=== PATIENT | female | born 1960 | race Two or more races ===

== ENCOUNTER → 2017-06-04 | Outpatient (CLI) | payer MEDICAID ==
[~2017-06-04] MED LIST: ALBU2TAB4 IN; ALBUAER3 IN; BUDE0.253 NEB; CETI5TAB20 PO; DICL1GEL26 TOP; DICL50TA2 PO; ESCI20TA PO; FERR325T PO; FLUT0.0535 NAS; FURO40TA4 PO; GABA-497 PO; GLIP-115 PO; HYDR-4663 PO; IPRAAER6 IN; LEVO125T6 PO; LOSA50TA6 PO; MONT10TA34 PO; PANT1INJ3 PO; POTA10TA34 PO; ROSU10TA16 PO; TOPI100T68 PO
== END | disposition home or self-care (01) ==
LOC: Rad HDHVI 11:57
PROVIDERS: ATTEND Internal Medicine Cardiovascular Disease
DX: I25.10 Atherosclerotic heart disease of native coronary artery without angina pectoris (principal)
CPT/HCPCS: 93880

== ENCOUNTER → 2017-06-20 | Outpatient (CLI) | payer MEDICAID ==
[2017-06-20 11:00] VITALS: BP 150/81
[2017-06-20 11:50] VITALS: BP 148/83
[2017-06-20 16:22] LABS: Basophils # (auto) 0 uL; Basophils % (auto) 0.4 % (0.0-2.0); Eosinophils # (auto) 0.2 uL; Eosinophils % (auto) 2.4 % (0.0-7.0); Hematocrit 39.7 % (36.0-46.0); Hemoglobin 13.3 g/dL (12.2-16.2); Lymphocytes # (auto) 2.6 uL; Mean Corpuscular Hemoglobin 32.3 pg (28.0-32.0); Mean Corpuscular Hgb Conc. 33.4 g/dL (32.0-36.0); Mean Corpuscular Volume 96.6 fL (80.0-100.0); Mean Platelet Volume 8.2 fL (7.4-10.4); Monocytes # (auto) 0.8 uL; Monocytes % (auto) 9.1 % (0.0-12.0); Neutrophils # (auto) 5.2 uL; Neutrophils % (auto) 59.1 % (37.0-80.0); Nucleated Red Blood Cells % 0.3 %; Platelet Count (auto) 326 10^3/uL (140-450); Red Cell Distribution Width 14.7 % (11.6-16.0); White Blood Cell 8.8 10^3/uL (4.4-10.8)
[2017-06-20 16:27] LABS: BUN/Creatinine Ratio 14.1; Calcium 8.9 mg/dL (8.5-10.1); Potassium 3.5 mmol/L (3.5-5.1)
[2017-06-20 16:43] LABS: INR 0.92 (0.9-1.15); Partial Thromboplastin Time 26.5 sec (22.64-33.71)
== END | disposition home or self-care (01) ==
LOC: CHF HDHVI 10:48
PROVIDERS: ATTEND Internal Medicine Cardiovascular Disease
DX: Z01.812 Encounter for preprocedural laboratory examination (principal); I10 Essential (primary) hypertension; D64.9 Anemia, unspecified; R79.1 Abnormal coagulation profile
CPT/HCPCS: 36415; 80048; 85025; 85610; 85730; 93005; G0463

== ENCOUNTER → 2017-06-26 | Day surgery (SDC) | payer MEDICAID ==
[~2017-06-26] VITALS: Ht 157.5 cm; Wt 136.1 kg
[~2017-06-26] MED LIST changes: +HYDROcodone-ACET 10/325MG TAB PO ONE; +IOHEXOL 350 MG/ML 100ML IJ ONE; +LIDOCAINE 2%HCL (LOCAL ANESTH.) INJ 20ML MDV ONE; +MIDAZOLAM HCL 1MG/1ML-2 ML VIAL ONE; +fentaNYL CITRATE 100 MCG/2 ML VL ONE
== END | disposition home or self-care (01) ==
LOC: CATH 12:01
PROVIDERS: ATTEND Internal Medicine Cardiovascular Disease
DX: R94.39 Abnormal result of other cardiovascular function study (principal); I27.2 Other secondary pulmonary hypertension; G47.30 Sleep apnea, unspecified; I10 Essential (primary) hypertension; I21.3 ST elevation (STEMI) myocardial infarction of unspecified site; G45.9 Transient cerebral ischemic attack, unspecified; J44.9 Chronic obstructive pulmonary disease, unspecified; J45.909 Unspecified asthma, uncomplicated; E11.8 Type 2 diabetes mellitus with unspecified complications; Z88.2 Allergy status to sulfonamides; E66.01 Morbid (severe) obesity due to excess calories
CPT/HCPCS: 93460; C1760; C1894; J1644; J3010; J7030; Q9967; 99152; 99153; J2250

== ENCOUNTER 2017-12-03 12:00 | Emergency (ER) | payer MEDICAID ==
[~2017-12-03] VITALS: Ht 157.5 cm; Wt 135.2 kg
[~2017-12-03 12:00] MED LIST changes: +FERR-20 PO; -FERR325T PO; +FLUT0.05 NAS; -FLUT0.0535 NAS; -GABA-497 PO; +GABA300C10 PO; -HYDR-4663 PO; +HYDR-4683 PO; -HYDROcodone-ACET 10/325MG TAB PO ONE; -IOHEXOL 350 MG/ML 100ML IJ ONE; -LEVO125T6 PO; +LEVO125T7 PO; -LIDOCAINE 2%HCL (LOCAL ANESTH.) INJ 20ML MDV ONE; -MIDAZOLAM HCL 1MG/1ML-2 ML VIAL ONE; -fentaNYL CITRATE 100 MCG/2 ML VL ONE
[2017-12-03 13:30] LABS: Basophils # (auto) 0 uL; Basophils % (auto) 0.7 % (0.0-2.0); Eosinophils # (auto) 0 uL; Eosinophils % (auto) 0.4 % (0.0-7.0); Hematocrit 37.8 % (36.0-46.0); Hemoglobin 12.2 g/dL (12.2-16.2); Lymphocytes # (auto) 1.2 uL; Lymphocytes % (auto) 23.1 % (10.0-50.0); Mean Corpuscular Hemoglobin 31.2 pg (28.0-32.0); Mean Corpuscular Hgb Conc. 32.4 g/dL (32.0-36.0); Mean Corpuscular Volume 96.2 fL (80.0-100.0); Monocytes # (auto) 1.2 uL; Neutrophils # (auto) 2.8 uL; Nucleated Red Blood Cells % 0.2 %; Platelet Count (auto) 329 10^3/uL (140-450); Red Blood Cells 3.93 10^6/uL (4.0-5.20); Red Cell Distribution Width 14.2 % (11.8-14.3); White Blood Cell 5.3 10^3/uL (4.4-10.8)
[2017-12-03 13:42] LABS: Monocytes % (auto) 21.8 % (0.0-12.0)
[2017-12-03 20:40] VITALS: BP 155/81
[2017-12-03 21:24] LABS: Urine Bacteria FEW /hpf (None Seen); Urine Blood Negative /uL (Negative); Urine Hyaline Cast FEW /lpf (0 - 2); Urine Mucus FEW (None Seen); Urine Specific Gravity 1.029 (1.001-1.035); Urine WBC 1 /hpf (0 - 5)
[2017-12-03 22:39] LABS: Albumin 3.5 g/dL (3.4-5.0); BUN/Creatinine Ratio 9.8; Potassium 3.5 mmol/L (3.5-5.1)
[2017-12-03 22:41] LABS: Bilirubin, Total 0.2 mg/dL (0.2-1.0); Total Protein 7.7 g/dL (6.4-8.2)
== END 2017-12-03 23:47 | disposition home or self-care (01) ==
LOC: ER 12:00
DX: N83.202 Unspecified ovarian cyst, left side (principal); N20.0 Calculus of kidney; J44.9 Chronic obstructive pulmonary disease, unspecified; E11.9 Type 2 diabetes mellitus without complications; E78.5 Hyperlipidemia, unspecified; I10 Essential (primary) hypertension; E07.9 Disorder of thyroid, unspecified; Z79.84 Long term (current) use of oral hypoglycemic drugs
CPT/HCPCS: 36415; 74176; 80053; 81001; 85025

== ENCOUNTER → 2018-08-26 | Outpatient (CLI) | payer MEDICAID ==
[~2018-08-26] VITALS: Ht 165.1 cm; Wt 135.2 kg
[~2018-08-26] MED LIST changes: +ADENOSINE 114 MG in GIVE UN-DILUTED 0 ML IV ONE; +ADENOSINE 90 MG/30 ML INJ IV ONE; +LOSA-46 PO; -LOSA50TA6 PO; -POTA10TA34 PO; +POTA1TAB61 PO
== END | disposition home or self-care (01) ==
LOC: Rad HDHVI 14:08
PROVIDERS: ATTEND Internal Medicine Cardiovascular Disease
DX: I10 Essential (primary) hypertension (principal); G45.9 Transient cerebral ischemic attack, unspecified; R07.89 Other chest pain; R63.8 Other symptoms and signs concerning food and fluid intake; R00.2 Palpitations
CPT/HCPCS: 78452; 93005; 96374; 96375; A9500; J0153

== ENCOUNTER → 2018-09-29 | Outpatient (CLI) | payer MEDICAID ==
[~2018-09-29] MED LIST changes: -ADENOSINE 114 MG in GIVE UN-DILUTED 0 ML IV ONE; -ADENOSINE 90 MG/30 ML INJ IV ONE; +ASPI-498 OR; +ATO40T PO; +LIDOCAINE 2%HCL (LOCAL ANESTH.) INJ 20ML MDV ONE
[2018-09-29 11:00] VITALS: BP 155/80
[2018-09-29 11:31] VITALS: BP 153/76
[2018-09-29 12:39] LABS: INR 0.91 (0.9-1.15); Partial Thromboplastin Time 28.6 sec (23.78-33.04); Prothrombin Time 9.8 sec (9.27-12.13)
[2018-09-29 12:40] LABS: BUN/Creatinine Ratio 12.5; Basophils # (auto) 0 uL; Basophils % (auto) 0.5 % (0.0-2.0); Calcium 8.2 mg/dL (8.5-10.1); Eosinophils # (auto) 0.2 uL; Eosinophils % (auto) 2.3 % (0.0-7.0); Hematocrit 37.8 % (36.0-46.0); Hemoglobin 12.5 g/dL (12.2-16.2); Lymphocytes # (auto) 2.4 uL; Lymphocytes % (auto) 29.7 % (10.0-50.0); Mean Corpuscular Hemoglobin 32.6 pg (28.0-32.0); Mean Corpuscular Hgb Conc. 33.1 g/dL (32.0-36.0); Mean Corpuscular Volume 98.7 fL (80.0-100.0); Monocytes # (auto) 0.7 uL; Neutrophils # (auto) 4.7 uL; Neutrophils % (auto) 58.5 % (37.0-80.0); Platelet Count (auto) 317 10^3/uL (140-450); Potassium 3.5 mmol/L (3.5-5.1); Red Blood Cells 3.82 10^6/uL (4.0-5.20); Red Cell Distribution Width 14.4 % (11.8-14.3); White Blood Cell 8.1 10^3/uL (4.4-10.8)
== END | disposition home or self-care (01) ==
LOC: Rad HDHVI 11:00
PROVIDERS: ATTEND Internal Medicine Cardiovascular Disease
DX: Z01.818 Encounter for other preprocedural examination (principal); I70.0 Atherosclerosis of aorta; D64.9 Anemia, unspecified; R79.1 Abnormal coagulation profile; I10 Essential (primary) hypertension
CPT/HCPCS: 36415; 71046; 80048; 85025; 85610; 85730; 93005; G0463

== ENCOUNTER 2018-09-30 09:23 | Day surgery (SDC) | payer MEDICAID ==
[~2018-09-30] VITALS: Ht 157.5 cm; Wt 130.6 kg
[~2018-09-30 09:23] MED LIST changes: -DICL1GEL26 TOP; -DICL50TA2 PO; -LIDOCAINE 2%HCL (LOCAL ANESTH.) INJ 20ML MDV ONE; -ROSU10TA16 PO
[2018-09-30] MEDS ORDERED: NALOXONE HCL 0.4 MG/ML VIAL IV ONE (09:30)
[2018-09-30] MEDS ORDERED: FLUMAZENIL 0.1 MG/ML INJ 10ML MDV IV ONE (09:30)
[2018-09-30] MEDS ORDERED: LIDOCAINE VISCOUS 2% 15ML UD PO ONE (09:30)
[2018-09-30] MEDS ORDERED: MIDAZOLAM HCL 1MG/1ML-2 ML VIAL IV ONE (09:30)
[2018-09-30] MEDS ORDERED: fentaNYL CITRATE 100 MCG/2 ML VL IV ONE (09:30)
[2018-09-30] MEDS ORDERED: SODIUM CHL 0.9% 0 ML ONE (12:02)
[2018-09-30] MEDS ORDERED: ANGIOMAX 250 MG VIAL IV ONE (12:02)
[2018-09-30] MEDS ORDERED: VERAPAMIL 2.5MG/ML INJ 2ML VIAL IV ONE (12:02)
[2018-09-30] MEDS ORDERED: IOHEXOL 350 MG/ML 100ML IJ ONE (12:05)
[2018-09-30] MEDS ORDERED: HEPARIN SODIUM (PORCINE) 5000 UNITS/ML 1ML VIAL ONE (12:35)
== END 2018-09-30 14:35 | disposition home or self-care (01) ==
LOC: CATH 09:23
PROVIDERS: ATTEND Internal Medicine
DX: G45.9 Transient cerebral ischemic attack, unspecified (principal); F10.99 Alcohol use, unspecified with unspecified alcohol-induced disorder; I10 Essential (primary) hypertension; E78.5 Hyperlipidemia, unspecified; I25.2 Old myocardial infarction; J45.909 Unspecified asthma, uncomplicated; J44.9 Chronic obstructive pulmonary disease, unspecified; E11.9 Type 2 diabetes mellitus without complications; G47.30 Sleep apnea, unspecified; E07.9 Disorder of thyroid, unspecified; Z91.02 Food additives allergy status; Z88.2 Allergy status to sulfonamides; Z88.8 Allergy status to other drugs, medicaments and biological substances; Z82.49 Family history of ischemic heart disease and other diseases of the circulatory system; Z79.82 Long term (current) use of aspirin; Z79.899 Other long term (current) drug therapy
CPT/HCPCS: 93312; 93458; C1769; C1887; C1894; J1644; J3010; J7030; Q9967; 99152; A6257; J2250